=== PATIENT | male | born 1975 | race Caucasian/White ===

== ENCOUNTER 2019-04-20 14:47 | Emergency (ER) | payer OTHER ==
[~2019-04-20] VITALS: Ht 170.2 cm; Wt 97.5 kg
--- NOTE | 2019-04-20 14:47 | NUR ---
Note angi in EDM - 04/20/19 at 1501 by [facility]DA [facility]. Report given to PANKAJ Leija.
--- NOTE | 2019-04-20 14:47 | NUR ---
Patient to ER bed 3 to gown for evaluation. Side rails up. Report given to PANKAJ Rock.
[2019-04-20 14:48] VITALS: BP_SYST 143
--- NOTE | 2019-04-20 15:00 | NUR ---
ER at bedside examining patient.
--- NOTE | 2019-04-20 15:12 | NUR ---
Pt awake, alert, oriented x4. Pt Brought in by self. Pt states that he was walking today when he had chest/back pain 7/10 radiating to the right arm, with associated shortness of breath. Pt states he has had this pain a number of times before. Pt states that he had relief from pain when he rested. Pt states that now his symptoms have subsided. Pt states that he was worried and wanted to get checked out. Pt resting in bed comfortably, currently no shortness of breath, acute signs of distress. VSS, will continue to monitor
[2019-04-20] MEDS ORDERED: KETOROLAC TROMETHAMINE 30 MG VIAL IVP ONE (15:15)
[2019-04-20] MEDS ORDERED: LORazepam 2 MG/ML VIAL IVP ONE (15:15)
--- NOTE | 2019-04-20 15:16 | NUR ---
Radiology bedside performing chest Xray
[2019-04-20 15:30] LABS: BASOPHILS # (AUTO) 0.2 K/uL (0.0-0.2); BASOPHILS % (AUTO) 2.7 % (0.0-2.0); EOSINOPHILS # (AUTO) 0.1 K/uL (0.0-0.4); EOSINOPHILS % (AUTO) 1.6 % (0.0-4.0); HEMOGLOBIN 16.7 g/dL (14.0-18.0); LYMPHOCYTES % (AUTO) 24.8 % (20.5-51.5); MEAN CORPUSCULAR HEMOGLOBIN 31 pg (27-31); MEAN CORPUSCULAR HGB CONC 34 % (32-36); MEAN CORPUSCULAR VOLUME 91 fL (79.0-98.0); MONOCYTES # (AUTO) 0.6 K/uL (0.0-1.0); MONOCYTES % (AUTO) 7.1 % (1.7-9.3); NEUTROPHILS # (AUTO) 5.2 K/uL (1.8-7.7); NEUTROPHILS % (AUTO) 63.8 % (40.0-70.0); PLATELET COUNT (AUTO) 167 K/uL (130-430); RED BLOOD CELL COUNT(AUTO) 5.36 MIL/uL (4.2-6.2); RED CELL DISTRIBUTION WIDTH 13.8 % (9.0-15.0); WHITE BLOOD COUNT (AUTO) 8.2 K/uL (4.8-10.8)
[2019-04-20 15:48] LABS: CALCIUM 8.8 mg/dL (8.4-11.0); CREATININE 0.92 mg/dL (0.55-1.30); POTASSIUM 3.9 mmol/L (3.5-5.1)
--- NOTE | 2019-04-20 16:45 | NUR ---
Pt resting comfortably in bed. Pt was asleep when Nurse entered room. Pt Vitals rechecked, and pain evaluated. Pt states pain has been reduced and remains at 3/10 at this time. Vss, will continue to monitor.
--- NOTE | 2019-04-20 17:25 | NUR ---
ED MD [facility] bedside explaining lab results, Xray results to patient.
[2019-04-20 17:40] VITALS: BP_SYST 129
--- NOTE | 2019-04-20 17:40 | NUR ---
Patient given written and verbal discharge instructions and verbalizes understanding. ER MD discussed with patient the results and treatment provided. Patient in stable condition. ID arm band removed. IV catheter removed intact and dressing applied, no active bleeding. Rx of Tramadol, Naproxen given. Patient educated on pain management and to follow up with PMD. Pain Scale 1/10. Opportunity for questions provided and answered. Medication side effect fact sheet provided.
== END 2019-04-20 17:40 | disposition home or self-care (01) ==
LOC: SED 14:47
DX: S29.012A Strain of muscle and tendon of back wall of thorax, initial encounter (principal); F17.210 Nicotine dependence, cigarettes, uncomplicated; X58.XXXA Exposure to other specified factors, initial encounter; Y93.89 Activity, other specified; Y92.89 Other specified places as the place of occurrence of the external cause; Y99.8 Other external cause status; E11.9 Type 2 diabetes mellitus without complications
CPT/HCPCS: 36415; 71045; 80053; 82550; 83880; 84484; 85025; 85379; 93005; 96374; 96375; 99284; J1885; J2060